=== PATIENT | female | born 1985 | race Two or more races ===

== ENCOUNTER → 2020-06-26 08:35 | Outpatient (CLI) | payer OTHER, SELFPAY ==
--- NOTE | ~2020-06-26 | CT_ITS ---
EXAMINATION: CT soft tissue neck w con DATE: 06/26/2020 08:54 INDICATION: Left submandibular swelling and pain. TECHNIQUE: Computed tomography (CT) of the neck was performed with 75 mL Omnipaque-350 intravenous co ntrast. Automated exposure control and iterative reconstruction technique were employed. The dose-tres gth product was 369.23 mGy-cm. COMPARISON: None FINDINGS: The orbits are normal. There are no pathologically enlarged lymph nodes. The parotid glands and submandibular glands are normal. The cervical carotid arteries and vertebral arteries are normal . There is dependent fluid in the maxillary sinuses. The spine is unremarkable. IMPRESSION: 1. No etiology for the patient's symptoms. Reviewed, dictated and finalized at location A.
== END ==
PROVIDERS: PCP Emergency Medicine; Visit Provider Emergency Medicine
DX: R22.1 Localized swelling, mass and lump, neck (principal)
CPT/HCPCS: 70491; Q9967

== ENCOUNTER → 2020-07-01 08:14 | Outpatient (CLI) | payer OTHER, SELFPAY ==
--- NOTE | ~2020-07-01 | US_ITS ---
EXAMINATION: US abdomen complete DATE: 07/01/2020 08:43 INDICATION: Liver disease elevated liver TECHNIQUE: Multiple grayscale and Doppler ultrasound images of the abdomen were obtained. COMPARISON: None available FINDINGS: The head and body of the pancreas are normal. The pancreatic tail is obscured by bowel gas. The liver is normal with normal echogenicity and echotexture. No surface nodularity. Normal hepatope maik flow in the main portal vein. The gallbladder is normal with no abnormal wall thickening, pericho lecystic fluid or stones. The normal common bile duct measures 6 mm. There was no sonographic Talavera sign. The visualized portions of the aorta and inferior vena cava are normal. The right kidney measures 12.3 x 4.3 x 4.9 cm. The left kidney measures 10.8 x 4.2 x 5.9 cm. The kidn eys demonstrate normal parenchymal echogenicity. There is no hydronephrosis. The spleen is normal in appearance and measures 11.0 cm. IMPRESSION: 1. No sonographic correlate for the patient's symptoms. Reviewed, dictated and finalized at location A.
== END ==
PROVIDERS: PCP Emergency Medicine; Visit Provider Emergency Medicine
DX: K76.9 Liver disease, unspecified (principal)
CPT/HCPCS: 76700

== ENCOUNTER → 2021-08-20 17:34 | Outpatient (CLI) | payer OTHER, SELFPAY ==
--- NOTE | ~2021-08-20 | XR_ITS ---
EXAMINATION: XR chest 2V DATE: 08/20/2021 17:50 INDICATION: Cough TECHNIQUE: PA and lateral views of the chest are obtained. COMPARISON: None available FINDINGS: The lungs are free of acute opacities. There is no pleural effusion or pneumothorax. The ca rdiomediastinal silhouette is normal. There is mild thoracic spondylosis. IMPRESSION: 1. No acute cardiopulmonary abnormality. Reviewed, dictated and finalized at location F.
== END ==
PROVIDERS: PCP Emergency Medicine; Visit Provider Emergency Medicine
DX: R05.9 Cough, unspecified (principal)
CPT/HCPCS: 71046

== ENCOUNTER 2024-10-02 00:50 | Day surgery (SDC) | payer OTHER, SELFPAY ==
[2024-09-28 13:47] VITALS: BMI 29.0
--- OUTSIDE RECORDS SUMMARY | 2024-10-02 00:53 | XMS_ITS | Encounter Summary ---
Author Organization [facility] Address [address] [place] [address] Care Team Providers Care Moss Gatherer Name Role Phone Gen Pinto MD Primary Care Provider [phone] Reason for Visit * Reason Onset Date Comments Surgical Followup 07/26/2018 Encounter Details Date Type Department Care Team (Late st Contact Info) Description 07/26/[address] [facility] [address] [place] [address] Saundra Yi APRN-CNM [address] [facility] [address] [place] [address] Surgical Followup Social History Tobacco Use Types Packs/Day Years Used Date Smoking Tobacco: Never Smokeless Tobacco: Never Alcohol Use Standard Drinks/Week Comments No 0 (1 standard drink = 0.6 oz pur e alcohol) Comments Yes Sex and Gender Information Value Date Recorded Sex Assigned at Not on file Legal Sex Female 1:23 PM CDT Gender Identity Not on file Sexual Orientation Not on file documented as of this encounter Miscellaneous Notes * Telephone Encounter - Saundra Yi APRN-CNM - 07/26/2018 4:29 PM CDT Called patient and her spouse. Former patient of mine who transferred care to practice in [place] for convenience. States delivered at [facility] on 07/19. First day home from hospital, had large blood clot hanging from vagina that she could not remove herself. Presented to ER at [place] and states had pelvic exam and they removed a piece of placenta about 10 cm. Told to f/u with Dr. Fisher and have US. States she did that a few days later and was told she had retained placenta and prescribed antibiotics and was scheduled for surgery 07/27 at 7 am. When she asked what surgery she was having she said that the office and hospital both refused to tell her what surgery she needed and that she just needed to show up to the hospital. Pt states that she has a language barrier and does not feel that she is being well-informed about her care. She is concerned because she is still bleeding, although bleeding has slowed down. Denies soaking 1 pad/hr. States is having increased cramping and is worried.She declines to go to closest ER ([facility] or [facility]) as she was told they do not have ultrasound capability and they are not keeping her informed. Advised to come to our ER at [facility] for evaluation. will drive her. Drs. Savage and Baldo Caballero notified. * Telephone Encounter - Lissette Sapp RN - 07/26/2018 4:14 PM CDT Saundra Yi returned call to pt & spouse. Due to symptoms, recommended ER @ [facility]. Possible retained placenta, may need D&C. Pt told Saundra she would go to ER. Saundra contacted attending r/t pt. * Telephone Encounter - Janet Day - 07/26/2018 3:49 PM CDT Spouse( Tania ) Called she delivered 07-19-18 at [facility] [phone]. The placenta was not fully removed. She is going to see a [phone] tomorrow AM address [address] [place] [address] [place]. She is not comfortable going there to have placenta removed. Needs DENISE call. documented in this encounter Plan of Treatment Not on file documented as of this encounter Visit Diagnoses Not on filedocumented in this encounter Care Teams Moss Gatherer Relationship Specialty Start Date End Date Gen Pinto MD PCP - General Family Medicine 07/26/18 documented as of this encounter
--- OUTSIDE RECORDS SUMMARY | 2024-10-02 00:53 | XMS_ITS | Continuity of Care Document ---
Author Organization [facility] Address [address] [place] [address] [place] [address] Phone Care Team Providers Care Picker Tender Name Role Phone Gen Pinto MD Unavailable Unavailable Allergies, Adverse Reactions, Alerts Substance Reaction Status Criticality No Known Allergies Active No Inform ation Medications Medication Instructions Dosage Effective Dates (start - stop) Status Comments Pepcid 40 mg tablet take 1 tablet by ora l route every day 40 MG - Active Problems Condition Type Effective Dates (start - stop) Clini ria Status Comments No Known Problems Procedures Procedure Date OFFICE/OUTPATIENT VISIT, EST OFFICE/OUTPATIENT VISIT, EST PREV VISIT, EST, AGE 18-39 OFFICE/OUTPATIENT VISIT, EST OFFICE/OUTPATIENT VISIT, EST PREV VISIT, EST, AGE 18-39 OFFICE/OUTPATIENT VISIT, EST OFFICE/OUTPATIENT VISIT, EST OFFICE/OUTPATIENT VISIT, EST OFFICE/OUTPATIENT VISIT, EST PREV VISIT, EST, AGE 18-39 OFFICE/OUTPATIENT VISIT, EST OFFICE/OUTPATIENT VISIT, EST OFFICE/OUTPATIENT VISIT, EST OFFICE/OUTPATIENT VISIT, EST PREV VISIT, EST, AGE 18-39 OFFICE/OUTPATIENT VISIT, EST OFFICE/OUTPATIENT VISIT, EST OFFICE/OUTPATIENT VISIT, EST OFFICE/OUTPATIENT VISIT, EST OFFICE/OUTPATIENT VISIT, EST OFFICE/OUTPATIENT VISIT, EST OFFICE/OUTPATIENT VISIT, EST PREV VISIT, NEW, AGE 18-39 OFFICE/OUTPATIENT VISIT, NEW Advance Directives Directive Yes / No Effective Date File Name No Information Encounters Encounter Description Practice Location Reason(s) For Visit Diagnoses Date Provider Providers Copied on Encounter OFFICE/OUTPA TIENT VISIT, [facility], [address] [place], [address], [place] tel:[phone] [facility] sleep apnea1 (chief complaint) abd pain1 (chief complaint) weight gain1 (chief complaint) Abnormal weight gainGERD w/o esophagitisObstruct flo Sleep Apnea Hypopnea 5 Blair Blevins. [address], [place], [place], [address] , [place]. [phone] OFFICE/OUTPA TIENT VISIT, [facility], [address] [place], [address], [place] tel:[phone] [facility] sleep1 (chief complaint) cough1 (chief complaint) back pain1 (chief complaint) Obstructive sleep apnea hypopneaChronic coughOther spondylosis, lumbar region 5 Blari Solis [address], [place], [place], [address] , [place]. tel:[phone] PREV VISIT, EST, AGE 18-39 [facility], [address] [place], [address], [place] [phone] [facility] physical (chief complaint) Encounter for general adult medical exam w abnormal findingsAllergic rhinitis due to pollenParesthesia of skinOther spondylosis, cervical regionUrinary frequencyGeneralize d Anxiety Disorder 4 Blair Blevins. [address], [address] , [place]. tel:[phone] OFFICE/OUTPA TIENT VISIT, [facility], [address] [place], [address], [place] tel:[phone] [facility] sore throat1 (chief complaint) rash1 (chief complaint) chest pain1 (chief complaint) Tinea corporisAnt chest-wall painHypertrophy of tonsilsLiver disease 3 Blair Solis [address], [place], [place], [address] , [place]. tel:[phone] PREV VISIT, EST, AGE 18-39 [facility], [address], [place], [place], [address], [place] tel:[phone] [facility] PHysical (chief complaint) Encounter for general adult medical exam w abnormal findingsChronic coughLiver diseaseFamily history of stroke 3 Blair Solis [address], [place], [place], [address] , [place]. [phone] OFFICE/OUTPA TIENT VISIT, [facility], [address], [place], [place], [address], [place] tel:[phone] [facility] cough1 (chief complaint) LFT (chief complaint) Chronic coughCOVID-19Liver disease 2 Blair Solis [address], [place], [place], [address] , [place]. tel:[phone] OFFICE/OUTPA TIENT VISIT, [facility], [address] [place], [address], [place] tel:[phone] [facility] cough1 (chief complaint) allergy1 (chief complaint) Viral infectionRashAllerg ic rhinitis Jul- 2 Blair Solis [address], [place], [place], [address] , [place]. tel:[phone] OFFICE/OUTPA TIENT VISIT, [facility], [address], [place], [place], [address], [place] tel:[phone] [facility] COVID (chief complaint) LFT (chief complaint) H pylori1 (chief complaint) weight gain1 (chief complaint) Abnormal weight gainFatty liverCOVID-19H. pylori as the cause of diseases classified elsewhere 2 Blair Blevins. [address], [place], [place], [address] , [place]. tel:[phone] PREV VISIT, EST, AGE 18-39 [facility], [address], [place], [place], [address], [place] tel:[phone] [facility] physical (chief complaint) Encounter for general adult medical exam w abnormal findingsLiver diseaseH. pylori as the cause of diseases classified elsewhere 2 Blair Blevins. [address], [place], [place], [address] , [place]. tel:[phone] OFFICE/OUTPA TIENT VISIT, [facility], [address], [place], [place], [address], [place] tel:[phone] [facility] fever1 (chief complaint) H pylori (chief complaint) yeast (chief complaint) H. pylori as the cause of diseases classified elsewhereHematuriaA bdominal painNauseaPruritus vulvae 1 Blair Blevins. [address], [place], [place], [address] , [place]. tel:[phone] OFFICE/OUTPA TIENT VISIT, EST [facility], [address], [place], [place], [address], [place] tel:[phone] [facility] H pylori1 (chief complaint) allergy1 (chief complaint) H. pylori as the cause of diseases classified elsewhereAllergic rhinitis 1 Blair Solis [address], [place], [place], [address] , [place]. tel:[phone] Referring Provider: Kathryn T[address], [place], [place], [address]. tel:[phone] OFFICE/OUTPA TIENT VISIT, EST [facility], [address], [place], [place], [address], [place] tel:[phone] [facility] Hpylori (chief complaint) allergy1 (chief complaint) H. pylori as the cause of diseases classified elsewhereAllergic rhinitis 1 Blair Solis [address], [place], [place], [address] , [place]. tel:[phone] Referring Provider: Kathryn Tatum [address], [place], [place], [address]. tel:[phone] PREV VISIT, EST, AGE 18-39 [facility], [address], [place], [place], [address], [place] tel:[phone] [facility] LFT (chief complaint) H pylori1 (chief complaint) allergy1 (chief complaint) HLP (chief complaint) jaw pain1 (chief complaint) H. pylori as the cause of diseases classified elsewhereLiver diseaseAtypical facial painAllergic rhinitisEncounter for general adult medical exam w abnormal findingsEncounter for general adult medical examination without abnormal findings 1 Blair Solis [address], [place], [place], [address] , [place]. tel:[phone] Referring Provider: Kathryn Tatum [address], [place], [place], [address]. tel:[phone] OFFICE/OUTPA TIENT VISIT, [facility], [address], [place], [place], [address], [place] tel:[phone] [facility] H pylori1 (chief complaint) HLP (chief complaint) weight loss1 (chief complaint) H. pylori as the cause of diseases classified elsewhereIron deficiencyHyperlipi demiaAbnormal weight loss 0 1 Blair Solis [address], [place], [place], [address] , [place]. tel:[phone] Referring Provider: Kathryn Tatum [address], [place], [place], [address]. tel:[phone] OFFICE/OUTPA TIENT VISIT, EST [facility], [address], [place], [place], [address], [place] tel:[phone] [facility] rash1 (chief complaint) allergy1 (chief complaint) hidradenit is1 (chief complaint) Hpylori1 (chief complaint) iron (chief complaint) RashHidradenitis suppurativaAllergic rhinitisH. pylori as the cause of diseases classified elsewhereIron deficiency 0 Blair Blevins. [address], [place], [place], [address] , [place]. tel:[phone] Referring Provider: Kathryn Tatum [address], [place], [place], [address]. tel:[phone] OFFICE/OUTPA TIENT VISIT, [facility], [address], [place], [place], [address], [place] tel:[phone] [facility] lymph1 (chief complaint) right axillary1 (chief complaint) muscle pain1 (chief complaint) Hpylori1 (chief complaint) LymphadenopathyHidr adenitis suppurativaOther muscle spasmH. pylori as the cause of diseases classified elsewhere 0 Blair Blevins. [address], [place], [place], [address] , [place]. tel:[phone] Referring Provider: Kathryn Tatum [address], [place], [place], [address]. tel:[phone] OFFICE/OUTPA TIENT VISIT, [facility], [address], [place], [place], [address], [place] tel:[phone] [facility] HLP (chief complaint) sty (chief complaint) knee (chief complaint) knee pain1 (chief complaint) Hpylori1 (chief complaint) anemia1 (chief complaint) H. pylori as the cause of diseases classified elsewhereHordeolum externum of right eyelidAnemiaPain in unspecified kneeHyperlipidemia 9 Blair Blevins. [address], [place], [place], [address] , [place]. tel:[phone] Referring Provider: Kathryn T[address], [place], [place], [address]. tel:[phone] OFFICE/OUTPA TIENT VISIT, [facility], [address], [place], [place], [address], [place] tel:[phone] [facility] HLP (chief complaint) anemia1 (chief complaint) hand pain1 (chief complaint) AnemiaHyperlipidemi aElevated ESRPain in unspecified joint 9 Blair Blevins. [address], [place], [place], [address] , [place]. tel:[phone] Referring Provider: Kathryn T[address], [place], [place], [address]. tel:[phone] OFFICE/OUTPA TIENT VISIT, [facility], [address], [place], [place], [address], [place] tel:[phone] [facility] joint pain1 (chief complaint) nausea1 (chief complaint) Pain in unspecified jointNauseaH. pylori as the cause of diseases classified elsewhereAnemia 9 Blair Blevins. [address], [place], [place], [address] , [place]. tel:[phone] Referring Provider: Kathryn Tatum, [place], [address]. tel:[phone] PREV VISIT, NEW, AGE 18-39 [facility], [address], [place], [place], [address], [place] tel:[phone] [facility] PHysical (chief complaint) Encounter for general adult medical exam w abnormal findingsAthlete's footHypotensionOthe r hypertrophic disorders of the skin 9 Blair Blveins. [address], [place], [place], [address] , [place]. tel:[phone] Referring Provider: Kathryn Tatum [address], [place], [place], [address]. tel:[phone] Family History Family Member Type Diagnosis Age At Onset Father Problem Alive and well Mother Problem (finding) Alive and well Father Problem Stroke Brother Problem (finding) Alive and well Payers Payer name Insurance type Covered republican ID Authoriza tion(s) [employer] [facility] CI [id number] Social History Type Description Quantity Date Captured Comments Alcohol Use Details No Caffeine Use Details Unknown Tobacco Use Status Current non-smoker Smoking Status Never smoker Sex Female Vital Signs Date / Time: Height Weight BMI Pulse Rate Blood Pressure Temperature Respiratory Rate Body Surface Area Head Circumference BMI percentile Pulse Ox Inhaled Ox 5:24 PM 66.00 in 187.60 lbs 30.2 8 kg/m eter (2) 82 /min 110/60 mm[Hg] 97.5 F 16 /min Chief Complaint And Reason For Visit From encounter dated '09/17/2024 17:17'. sleep apnea1 (chief complaint). Description: Pt has sleep apnea Pt is seeing ENT/sleep and she willstart APAP soon abd pain1 (chief complaint). Description: Pt c/o intermittent midepigastric abd pain, regardless food or empty stomach. Pt also has GERd symptoms Pt feels acid feeling in stomach area .Pt sometimes feels sore throat in the morning as well. Pt denies any nausea, vomiting. weight gain1 (chief complaint). Description: Pt has been gaining weight. Pt has not been physicallyactive . Plan Of Treatment Date Type Action Status Goal Special diet education compl eted Goal Special diet education compl eted Goal Special diet education compl eted Goal Special diet education compl eted Referral Ordered: ESOPHAGUS ENDOSCOPY ordered Referral Ordered: SLEEP STUDY, ATTENDED ordered Referral Ordered: MRI BRAIN W/O & W/DYE ordered Referral Ordered: US CAROTID ordered Referral Ordered: Pulmonology (related to Chronic cough) ordered Referral Ordered: Gastroenterology (related to Liver disease) ordered Referral Ordered: Referrals: Gastroenterology. Evaluate and treat ordered Referral Ordered: Referrals: Pulmonology. Evaluate and treat ordered Referral Ordered: CHEST X-RAY PA/LAT TWO-VIEWS ordered Referral Ordered: Physical Therapy (related to Abdominal pain) ordered Referral Referred To: Physical Therapy Ordered: Referrals: Physical Therapy. Evaluate and treat ordered Referral Ordered: Jeanmarie [facility] : Internal Medicine : Gastroenterology (related to H. pylori as the cause of diseases classified elsewhere) ordered Referral Referred To: Jeanmarie Jane [address], [place], [id number] Ordered: Referrals: [facility] : Internal Medicine : Gastroenterology. Jeanmarie Jane. Evaluate and treat ordered Referral Ordered: CT SOFT TISSUE NECK W/DYE ordered Referral Ordered: US EXAM, ABDOM, COMPLETE ordered Referral Ordered: US THYROID ordered History Of Present Illness Encounter Date Complaint History Of Prese nt Illness abd pain1 Pt c/o intermitt ent midepigastric abd pain, regardless food or empty stomach. Pt also has GERd symptoms Pt feels acid feeling in stomach area .Pt sometimes feels sore throat in the morning as well. Pt denies any nausea, vomiting. 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 Pt has not been physically active . back pain1 Pt has intermitt ent low back pain Pt is seeing orthospine and she had MRi done which showed DDD Pt denies any sciatica or any loss of bowel or bladder control or saddle area paresthesia cough1 Pt has been havi ng dry cough for two months Pt denies any sob .Pt denies any sob Pt denies any hemoptysis Pt denies any night sweat Pt went to [place] recently and she had negative chest x ray and PFTs. Pt was told that she has hyperactive airway. Pt denies any sinus symptoms or sore throat sleep1 Pt c/o snoring a nd daytime fatigue Pt wakes up feeling tired. Pt is interested in sleep study physical Pt needs annual physical. She has family history of CVA Her father had stroke in his 50s with left side paralysis. Pt states that she notices left arm and leg numbness and tingling and some pain and some swelling for the past several months. Pt does have neck and low back pain Pt is seeing ortho who did C and L spine x ray which was benign and she was referred to physical therapy. pt denies any weakness. Pt is concerned about frequent left whole arm and left whole leg paresthesia. Pt does have some left radiculopathy and left sciatica symptoms. Pt denies any dillon weakness. Pt also notices subjective swelling left arm as well Pt denies any axillary nodule. Pt denies any headache or vision change. Pt has chronic environmental allergy and she is getting allergy shot. Pt also has a lot of stress at work. Pt feels anxious .Pt denies any depression Pt denies any suicidal or homicidal thought. Pt denies any crying spells. Pt also c/o urinary frequency recently without urgency or dysuria. Pt denies any flank pain or abd pain Pt denies any polydipsia. sore throat1 Pt c/o mild left side tonsil pain for two months pt denies any dysphagia pt denies any drooling. Pt notices mild pain sometime. Pt denies any headache, stiff neck Pt notices occasional tonsil stone on left side chest pain1 Pt c/o left side chest wall pain when she lies down at night on her left side. Pt denies any sob, or cough or night sweat. Pt states that chest pain relieved by lying down right side and also when she lying down face down. rash1 Pt c/o some mild itching rash around posterior neck and also left side arm area for several months, which are worse during the sun Pt denies any sick contact PHysical Pt needs annual physical Pt states that her cough resolved. Pt did see pulmonary and was cleared. Pt also has mildly elevated LFT. Pt denies any abd pain or jaundice. Pt did see liver specialist and was cleared of any liver disease. Pt denies any abd pain or jaundice pt rarely drinks alcohol. Pt also states that her uncle had stroke recently and she is concerned about her risk factor for stroke and she wants to know if she needs statins Pt denies any other complaints LFT Pt has history o f mild high LFT .Pt denies any abdominal pain or jaundice .Pt does not drink alcohol. Pt had normal liver ultrasound and negative hepatitis. Pt works with some toxic material at work for her liver. Pt wants to see liver specialist cough1 Pt contacted COV ID on 08/05/21. Pt has been having persistent dry and productive cough since then. Pt does have sinus allergy and she is on allergy shot and anti histamines. Pt denies any hemoptysis. Pt denies any fever .Pt denies any sob. pt states she has cough throughout the day but worse at night. Pt states that she feels that her throat feels sensitive due to cough. pt denies any dysphagia. Pt states that she has some intermittent sharp left side chest pain with persistent cough. Pt denies any calf pain or recent travel or bedrest. Pt had normal chest x ray recently. Pt denies any fever or chill or hemoptysis allergy1 Pt has chronic s easonal allergy and she gets regular allergy shot and she takes OTC anti histamine daily. pt does not think she has allergy symptoms cough1 Pt c/o sore thro at, running nose with green and white drainage, mild dry cough for one week. Pt has persistent bouts of dry cough since 3 weeks ago after infecting with COVID. Pt denies any fever, sob. Pt denies any dysphagia. Pt had normal chest x ray last week. Pt also notices small scattered red bumpy rash on stomach area for 3 days. Pt notices mild pain around the rash but no itching. Pt denies any sick contact. LFT Pt has mildly hi gh LFT recurrently. Pt denies any abd pain or jaundice Pt does not drink alcohol. Pt has negative hepatitis. Pt had normal liver ultrasound. H pylori1 Pt has history o f H pylori, which was successfully treated after 3 rounds of triple abx. Pt denies any abd pain or GERD COVID Pt tested positi ve for COVID on 08/05 and she had fever, cough without sob, headache and most of her symptoms resolved after 4-5 days but she started to have dry cough and sore throat since last week. Pt denies any sob or chest pain or fever. She denies any dysphagia. she went to urgent care last Tuesday and she was given Z quinton and felt slightly better initially but her cough is still persistent. Pt states that she woke up last night from coughing. Pt has been taking OTC meds. Pt denies any fever. Pt is taking OTC coug meds. weight gain1 Pt states that s he has had time losing weight. Pt has been diet and exercising without any weight loss. physical Pt needs annual physical. Pt has history of H pylori s/p treatment and she had negative urea breath test recently p yumi any GI issue. Pt denies any GERD, nausea, vomiting Pt recently had blood drawn by nurse and she states that the nurse did horrible job and the needle is not cleaned as well as the cotton swab Pt is very concerned about HIV and hepatitis etc. Pt denies any accidental stuck by contaminated needle. H pylori Pt has H pylori. Pt is taking levaquin, amoxil and prevacid currently and she is waiting for patricia with GI. Pt failed multiple rounds of abx treatment for h pylori. Pt denies any GERD or abd pain yeast Pt states that s he has recurrent vaginal itching for a while .Pt denies any pelvic pain or discharge fever1 Pt developed acu te onset of blood urine, dysuria, urinary frequency and urgency on 12/08/20. Pt went to ER on 12/08/20 and she had UA test and blood test and she was told that she had UTI and blood in urine. Pt had abdominal and pelvis CT in ER which was also normal. I reviewed her lab and no hematuria and urine cx was normal. Pt started to take amoxil and levofloxacin on 12/08/20 and she felt better and she started to have low grade fever around 100.4 and some chills. Pt feel nauseated as well. Pt c/o left side flank pain as well as well Pt states that she has been having left flank pain on and off for one month but has been worse since last week Pt returned to ER last night and had lab done which was normal again and UA did show some hematuria .Pt has not had any fever since last night. Pt feels mild nausea and mild left side flank pain. Pt still feels urinary urgency and mild dysuria still. Pt states that her left side back pain has been going on for a while with occasional left sciatica to left hip Pt denies any saddle area paresthesia or any leg neuropathy symptoms H pylori1 Pt has persisten t H pylori infection .Pt tried two rounds of treatment without success. Pt denies any abdominal pain or GERD. Pt denies any early satiety, weight loss, nausea, vomiting, appetite loss. Pt was treated with omeprazole, clarithromycin, amoxicillin and metronidazole x 3 rounds in the past several years without success . allergy1 Pt has chronic s inus allergy symptoms Pt is seeing zinc plate grainer at [facility] now and she is getting allergy shot. Pt is going ok currently allergy Pt has allergic rhinitis with conjunctivitis. Pt has teary and itchy eyes. Pt takes OTC anti-histamine and doing ok and she also uses cromolyn eye drops with good success. Pt wants eye drop refilled. Hpylori Pt has H pylori infection. Pt was treated with omeprazole, amoxicillin and also clarithromycin without success. She denies any GERD. Her just had EGD and tested negative for H pylori. Pt denies any abd pain, nausea, vomiting, weight loss ,appetite loss, blood in stool, etc LFT Pt has mld high LFT Pt denies any abd pain or jaundice Pt rarely drinks alcohol H pylori1 Pt has H pylori positive Pt denies any GERD or abd pain. Pt denies any nausea allergy1 Pt has seasonal allergy with itchy eyes, sneezing, sinus congestion with postnasal drainage Pt denies any vision change. Pt has frequent tearing Pt tried OTC anti histamine but not helping Pt denies any asthma or wheezing or sob HLP Pt has been diet and exercising and her lipid profile is ok now jaw pain1 Pt c/o persisten t left side posterior jaw pain for several years. Pt does grind her teeth at night pt notices mild swelling left side of neck just posterior to left jaw line .Pt denies any ear pain Pt feels dull ache all the time. Pt denies any toothache Apr-07-2021 weight loss1 Pt has been diet and exercising and intentionally losing weight Pt denies any appetite loss, nausea, vomiting, early satiety, blood in stool, change of bowel, abd pain, etc HLP Pt has mildly hi gh TG and low iron in the past Pt denies any fatigue sob H pylori1 Pt has history o f H pylori infection Pt was treated but she never did the follow up testing. Pt denies any GERD or abd pain hidradenitis1 Pt has hidradeni tises both axillary area for several years .Pt did see dermatology and was given doxycycline but she could not tolerate it with GI symptoms with nausea, vomiting. Pt states that currently she is doing ok with hidradenitis. rash1 Pt c/o recurrent and intermittent itchy rash around neck area for several months. Pt denies any insect bite. Pt denies any spreading of the rash .pt notices mild itching and pain around the rash. Pt notices small skin bumps around neck area and appears red sometimes .Pt denies any warmth. Pt denies any drainage .Pt denies any acute drainage or active symptoms now. Pt also notices some swelling around the rash area intermittently iron Pt has history o f low iron .Pt is 17 months . Pt denies any heavy bleeding Hpylori1 Pt denies any GE RD or abd pain Pt wants to hold off H pylori testing Pt was treated for triple therapy allergy1 Pt has recurrent sinus and itchy eyes .Pt seen eye doctor and she was told that she has allergic conjunctivitis and was prescribed allergy eye drop. Pt doing better .Pt denies any vision change. muscle pain1 Pt notices mild muscle pain left upper chest area near the left shoulder for several weeks. Pt has to carry her all the time Pt is . Pt denies any exertional chest pain or sob. Pt denies any injury. Pt denies any neck pain .Pt notices mild left upper arm tingling sometimes along with pain. Pt denies any left upper extremity weakness. Hpylori1 Pt denies any ab d pain or GERD ,Pt was treated for H pylori and she has not done urea breath test yet for follow up lymph1 Pt c/o chronic a nd intermittent left inferior auricular swelling for many years. Pt denies any sore throat, or any oral mucosa issue. pt notices active swelling for 3 weeks now. Pt denies any pain or redness or warmth. right axillary1 Pt c/o right axi llary swelling and pain with intermittent pus drainage for 3 weeks. Pt denies fever. Pt denies any left axillary symptoms. Pt also noticed some right inguinal area lymph node last week which resolved now. HLP Pt has mild high tG. Rest of lipid profile is ok Hpylori1 Pt denies any GE Rd or abd pain Pt has positive ure breath test. Her was recently tested positive for above and was successfully treated anemia1 Pt no longer ane nghia Pt has borderline low iron sat but improving ,Pt denies any bleeding sty Pt c/o mild pain and irritation and swelling right upper eyelid for several days. Pt denies any drainage or any eye issue knee knee pain1 Pt c/o bilateral medical knee and low back pain for several weeks. Pt denies any swelling Pt denies any injury, Pt denies any redness or warmth, Pt denies any sciatica or any loss of bladder control. Pt carries her frequently hand pain1 Pt has vague gasca d pain and borderline high ESR Pt denies any other joint pain Her rheumatological work up is negative. anemia1 Pt has mild iron deficiency anemia. Pt did have retained placenta s/p surgery with blood loss and she is . Pt denies any vaginal bleeding or any Gi blood loss Pt denies any GI blood loss HLP Pt has mild HLP Pt is two weeks . nausea1 Pt feels slightl y nauseated for 1-2 weeks. Pt denies any abdominal pain. Pt zora any vomiting or abdominal pain. Pt did have retained placenta post delivery and she had to have 2nd surgery done at [facility]. pt did lose some blood. Pt denies any dizziness or chest pain Pt had 2nd surgery last week. Pt notices mild spotting but getting better., Pt denies any GERD or abd pain just got treated for H pylori joint pain1 Pt c/o bilateral hand stiffness and PIP and wrist and MP joint pain both hand for one week. Pt is 3 weeks . Pt started to have hand pain two week . pt has been holding her baby more and is trying to manually squeeze her breast during breast feeding but she stopped doing above about one week ago but her hand stiff and pain persisted. Pt states that her hand stiffness and pain is worse in the morning and seems getting better towards later of the day but still feels stiffness with mild pain pt denies any swelling, warmth or redness Pt denies waking up at night with symptoms Pt has equal symptoms both hand Pt denies any other joint pain. Pt denies any rash PHysical Pt needs annual physical. Pt is 37 week and due date is in 2-3 weeks. Pt notices that her BP is running low and she feels some mild dizziness sometimes Pt denies any orthostasis. Pt states that her bp is around 100/60 at home. Pt denies any chest pain Pt also notices skin peeling left big toe without any itching for several weeks. Pt notices some brittle left big toenail with line. Pt also notices some vague rash on neck area. Pt denies any other complaints Instructions Date Instruction Additional Infor mation Special diet education Related t o Body mass index (BMI) 29.0-29.9, adult Weight management Related to Hor deolum externum of right eyelid Increase physical activity Relat ed to Hordeolum externum of right eyelid Special diet education Related t o Body mass index (BMI) 29.0-29.9, adult Increase physical activity Relat ed to Anemia Special diet education Related t o Body mass index (BMI) 29.0-29.9, adult Increase physical activity Relat ed to Pain in unspecified joint Diet and exercise Related to Enc ounter for general adult medical exam w abnormal findings Special diet education Related t o Body mass index (BMI) 31.0-31.9, adult Assessments Type Assessment Date assessment Abnormal weight gain assessment GERD w/o esophagitis assessment Obstructive Sleep Apnea Hypopnea Mental Status Date Cognitive Assessment Orientation - [place] ed to time, place, person, situation.
--- OUTSIDE RECORDS SUMMARY | 2024-10-02 00:53 | XMS_ITS | Clinical Summary ---
Author Organization [facility] Address [address] [place] [phone] Phone Care Team Providers Care Police Crime Scene Technician Name Role Phone Gen Pinto MD Primary Care Provider [phone] Allergies Active Allergy Reactions Criticality Noted Date Comments Cat Dander Unknown 04/21/2020 [place] Cough,Itching Low 10/17/2019 Tree Pollen-[place]ian [place] Unknown 04/21/2020 Tree Pollen-[place] Other (See Comments) Low 06/29 [place] Pollen [place] Pollen Rhinitis Medications cetirizine (ZyrTEC) 10 mg tablet Take 10 mg by mouth daily. 08/12/2020 Active L.acid,meek,rham /B.bifid,long (PROBIOTIC DIGEST,LACTO,BIF JADIEL, ORAL) Take by mouth daily. Active cranberry-vitami n C-mannose 250-30-50 mg Tablet, Chewable Take by mouth. Active Active Problems No known active problems Encounters Date Type Department Care Team Description 09/12/2024 External Device Data [facility] ABSTRACTION Provider, Abstract 09/12/2024 External Device Data [facility] ABSTRACTION Provider, Abstract 08/15/2024 External Device Data [facility] ABSTRACTION Provider, Abstract 07/31/2024 External Device Data [facility] ABSTRACTION Provider, Abstract 07/31/2024 External Device Data [facility] ABSTRACTION Provider, Abstract 07/19/2024 External Device Data ST[facility] ABSTRACTION Provider, Abstract from Last 3 Months Family History Medical History Relation Name Comments Hypertension Mother Diabetes Paternal Uncle Relation Name Status Comments Mother Paternal Uncle Social History Tobacco Use Types Packs/Day Years Used Date Smoking Tobacco: Never Smokeless Tobacco: Never Tobacco Cessation:Counseling Given: Yes Alcohol Use Standard Drinks/Week Comments Not Currently 0 (1 standard drink = 0.6 oz pur e alcohol) Comments No Sex and Gender Information Value Date Recorded Sex Assigned at Not on file Legal Sex Female 10:15 AM CDT Gender Identity Not on file Sexual Orientation Not on file Last Filed Vital Signs Vital Sign Reading Time Taken Comments Blood Pressure 118/78 10/24/2023 4:38 PM CDT Pulse 79 12/17/2020 3:59 AM CDT Temperature 36.7 C (98 F) 12/22/2020 10:43 AM CDT Respiratory Rate 17 01/09/2021 10:04 AM STUDENT OUTREACH COORDINATOR Oxygen Saturation 97% 12/17/2020 3:59 AM CDT Inhaled Oxygen Concentration - - Weight 81.2 kg (179 lb) 10/24/2023 4:38 PM CDT Height 167.6 cm (5' 6) 10/24/2023 4:38 PM CDT Body Mass Index 28.89 10/24/2023 4:38 PM CDT Plan of Treatment Upcoming Encounters Date Type Department Care Team (Late st Contact Info) Description 10/23/2024 3:30 PM CDT Office Visit [facility] STAVE [facility]INTER - [facility] [address] [address] [address] Johnny Llanos MD [address] [facility] [place][Note 2] [address] [place] [address] Health Maintenance Due Date Last Done Comments Pre-Diabetes and Diabetes Screening 1985 HEPATITIS B VACCINES (1 of 3 - 19+ 3-dose series) 2004 HPV VACCINES (2 - 3-dose series) 03/28/2011 02/28/19 12 INFLUENZA VACCINE (#1) 2024 , 10/22/2019, 12/01/2018, Additional history exists PAP SMEAR 10/23/2026 10/24/2023, 09/29, 10/07/2021, Additional history exists DTAP/TDAP/TD VACCINES (2 - T d or Tdap) 04/26/2028 04/26/2018 CERVICAL CANCER SCREENING 10/23/2028 HPV/Cotest (21-29) 10/23/2028 10/24/2023, 0 10/19/2022, 10/07/2021, Additional history exists HPV/Cotest (30-65) 10/23/2028 10/24/2023, 0 10/19/2022, 10/07/2021, Additional history exists Procedures Procedure Name Priority Date/Time Associated Diagnosis Comments CERV/VAG CYTO SCREEN PAP RLFX HPV Routine 10/24/2023 5:07 PM CDT Screening for cervical cancer from Last 3 Months or Most Recently Relevant to Health Maintenance Results * CERV/VAG CYTO SCREEN PAP RLFX HPV (10/24/2023 5:07 PM CDT) CLINICAL INFORMATION Yogi Shen Comment:None given LAST MENSTRUAL PERIOD Yogi Shen Comment:[id number] PREV PAP: Yogi Shen Comment:NONE GIVEN PREV BX: Yogi Shen Comment:NONE GIVEN SOURCE Yogi Shen Comment:Endocervix ADEQUACY: Yogi Shen Comment: Satisfactory for evaluation. Endocervical/transformation zone component present. PAP INTERP Yogi Shen Comment: Cytology Results: Negative for intraepithelial lesion or malignancy. COMMENT (PAP TEST) Q yesenia Shen Comment: This Pap test has been evaluated with computer assisted technology. OPTOMETRIST/PRACTICE OWNER: Amber Shen Comment: ABC, CT(ASCP) CT screening location: [place] [address] [address] Olga Shen Comment: EXPLANATORY NOTE: The Pap is a screening test for cervical cancer. It is not a diagnostic test and is subject to false negative and false positive results. It is most reliable when a satisfactory sample, regularly obtained, is submitted with relevant clinical findings and history, and when the Pap result is evaluated along with historic and current clinical information. Test Performed at: [facility] [place] [address] [address] [phone] Maribell Thi Vo Genital SWAB OF ENDOCERVIX / Unknown 10/24/2023 5:07 PM CDT 10/25/2023 6:12 AM CDT Johnny Llanos MD PATHOLOGY/CYTOLOGY ORD FREDRICK Final Result [facility] [phone] [facility] [address] [place] [address] from Last 3 Months or Most Recently Relevant to Health Maintenance Insurance RX [facility] [employer] [facility] [employer] Care Teams Police Crime Scene Technician Relationship Specialty Start Date End Date Gen Pinto MD [address] [employer] JUL[place]ET Agrawal [phone] PCP - General Family Practice 12/08/20
--- OUTSIDE RECORDS SUMMARY | 2024-10-02 00:53 | XMS_ITS | Referral Summary ---
Author Organization [facility] Address [address] [place] [address] Care Team Providers Care Oil Bay Technician Name Role Phone Gen Pinto MD Primary Care Provider Encounters Date Type Department Care Team Description 09/28/2024 3:30 PM CDT Clinical Support [facility] All[facility] Immunology [address] [place] [address] Medical Office Building [address] [place] [address] Seasonal allergic rhinitis due to pollen; Non-seasonal allergic rhinitis due to pollen 09/13/2024 2:00 PM CDT Clinical Support [facility] Immunology [address] [place] [address] Medical Office Building [address] [place] [address] Seasonal allergic rhinitis due to pollen; Non-seasonal allergic rhinitis due to pollen 09/07/2024 3:40 PM CDT Clinical Support [facility] Immunology [address] [place] [address] Medical Office Building [address] [place] [address] Seasonal allergic rhinitis due to pollen; Non-seasonal allergic rhinitis due to pollen 08/10/2024 3:40 PM CDT Clinical Support [facility] Immunology [address] [place] [address] Office Building [address] [place] [address] Seasonal allergic rhinitis due to pollen; Non-seasonal allergic rhinitis due to pollen 07/27/2024 Telephone [facility] Surgery [address] [facility] Medical Office Building [address] [place] [address] Swiney, Genesis, RMA orthotic coverage 07/27/2024 Results Follow-Up [facility] Surgery [address] [facility] Medical Office Building [address] [place] [address] Genesis Bronson RMA XR Foot Left 3 or More Views 07/26/2024 2:00 PM CDT - 07/26/2024 11:59 PM CDT Hospital Encounter [facility] - [address] [facility] [address] [place] [address] Left foot pain; Chronic pain of left ankle Discharge Disposition: Discharge to home or self care 07/26/2024 1:00 PM CDT Office Visit [facility] Surgery [address] [facility] Medical Office Building [address] [place] [id number] Mike Gan DPM Leg length discrepancy (Primary Dx); Left foot pain; Chronic pain of left ankle 07/13/2024 3:10 PM CDT Clinical Support [facility] All[facility] Immunology [address] [facility] Medical Office Building [address] [place] [address] Seasonal allergic rhinitis due to pollen; Non-seasonal allergic rhinitis due to pollen 07/02/2024 9:33 AM CDT - 07/02/2024 11:59 PM CDT Hospital Encounter [facility] Radiology at [facility] [address] [place] [address] Right elbow pain Discharge Disposition: Discharge to home or self care 07/02/2024 9:45 AM CDT Office Visit [facility] Orthopaedic Surgery [address] [facility] 1st Floor [address] [place] [address] Go Richards MD Right elbow pain (Primary Dx); Right wrist pain from Last 3 Months Allergies Active Allergy Reactions Criticality Noted Date Comments Cat Dander Unknown 04/21/2020 Riggins Cough,Eye irritation,Itching Low 10/17/2019 Tree Pollen-Barbadian [place] Unknown 04/21/2020 Tree Pollen-Delphos Other (See comments),Rhinitis Low 07/26/2018 Riggins Pollen Medications cranberry 400 mg capsule Take by mouth daily Active Lactobac no.41/Bifidobact no.7 (PROBIOTIC-10 ORAL) Take by mouth daily Active fluticasone propionate (FLONASE) 50 mcg/actuation nasal spray Administer 1 spray into each nostril daily Active clobetasoL (TEMOVATE) 0.05 % ointment Apply to perianal area twice daily x3 days then discontinue. 15 g 3 Active erythromycin (ILOTYCIN) ophthalmic ointment Apply a thin film to the outer corner of eyelids twice daily for two weeks. 3.5 g 1 4 Active olopatadine (PATADAY) 0.2 % ophthalmic solutionIndication s:Allergic Conjunctivitis Administer 1 drop into both eyes as needed for allergies Active Hospital, Clinic, or Other Facility Administered Medication Ordered Dose Route Frequency Start Date End Date Status cetirizine (ZyrTEC) tablet 10 mgIndications:Seasonal allergic rhinitis due to pollen 10 mg oral Once 09/28/2024 09/28/2024 Ended Active Problems Problem Noted Date Diagnosed Date Angular blepharitis of both eyes 03/07/2023 Assessment & Plan (07/20/2023 4:09 PM CDT): Resolved with e-mycin prn. 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 Elevated liver enzymes 11/09/2021 Assessment & Plan (11/12/2022 7:08 AM CDT): Patient with history of slightly elevated ALT of 37, rest of her labs have been normal. Her most recent labs from 11/09/21 showed normal liver chemistries. Serology workup and FibroScan were unremarkable. 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 I will obtain updated HFP today. If liver tests are normal then no further follow-up is needed. I recommended she use protective gear including mask and gloves. Patient can follow-up on PRN basis. Assessment & Plan (11/09/2021 9:55 AM CDT): Patient with a very slightly elevated ALT of 37. All other labs and liver tests are normal. Liver US 07/01/[address] a/p 12/08/20 were unremarkable. I will obtain updated labs today and evaluate for hepatitis, autoimmune, and other liver diseases. Will also obtain FibroScan to evaluate if she has any hepatic steatosis or fibrosis. If all are negative, will continue to monitor liver tests every 6 months. Given how low her ALT is, I do not predict any significant findings but will await test results. She will return to clinic in 1 year. Allergic conjunctivitis of both eyes 10/17/2019 Assessment & Plan (07/20/2023 4:09 PM CDT): Using pazeo daily. Breakthrough symptoms during peak pollen season, but this has passed. Advised pt to call if she has breakthrough symptoms and we can prescribe a short course of topical steroid. CPM with pazeo qd for now. Assessment & Plan (08/09/2022 3:29 PM CDT): Educated pt on signs/symptoms of allergic conjunctivitis. Currently seeing analytical research program manager and undergoing injections. Symptoms worsened during spring. Pt also with MGD and likely worsened dry eye secondary to systemic allergy tx. Recommended pataday for itching during allergy season, otherwise recommended hot compresses and ATs Refresh or Systane BID-QID OU. Pt to return to clinic if symptoms worsen. Assessment & Plan (05/22/2021 12:01 PM CDT): Educated pt on signs/symptoms of allergic conjunctivitis. Recommended pataday qam OU for allergy symptoms. Now seeing analytical research program manager and undergoing injections. Pt also with MGD and likely worsened dry eye secondary to systemic allergy tx, recommended hot compresses and ATs Refresh or Systane BID-QID OU. RTC if symptoms worsen. Assessment & Plan (12/09/2020 4:07 PM CDT): Can be getting some dryness with medications po and pataday. Will recommend hot compresses, flax/fish oil, more PFAFTs at bedtime (QHs). Use lotemax very sparingly. Assessment & Plan (10/17/2019 8:41 AM CDT): Lotemax QID both eyes (OU) for 1 week, then BID Ou for 1 week zaditor detention Conjunctival melanosis of both eyes 10/17/2019 Assessment & Plan (05/22/2021 11:59 AM CDT): Stable, observe. Assessment & Plan (12/09/2020 4:07 PM CDT): Noted previously Assessment & Plan (10/17/2019 8:41 AM CDT): No elevation or vascularization, observe Meibomian gland dysfunction (MGD) of both eyes 0 10/17/2019 Assessment & Plan (08/09/2022 3:30 PM CDT): Recommended refresh or systane BID-QID and hot compresses OU. Assessment & Plan (10/17/2019 8:42 AM CDT): Digital massage to lids daily Vaginal bleeding 02/01/2018 Supervision of normal first 12/07/2017 Overview (11/09/2019): PNL collection date and results: labs: B+/I/-/-; HIV neg Urine culture: neg PAP: normal w neg HPV GC/CT:-/- Dating US: 7wk5d Anomaly scan: plan at 20 wks Genetics: Sequential screen part one completed. Plan part 2 at 20 wks. GCT: 24-28 weeks Tdap: offer at 28 wks HIV: neg GBS: 35 wga H/Plt: 12.4.=/193 UCx: neg Breast/Formula: Breast Family Planning: Flu: given Supervision of normal first 12/07/2017 Overview (08/15/2021): PNL collection date and results: labs: B+/I/-/-; HIV neg Urine culture: neg PAP: normal w neg HPV GC/CT:-/- Dating US: 7wk5d Anomaly scan: plan at 20 wks Genetics: Sequential screen part one completed. Plan part 2 at 20 wks. GCT: 24-28 weeks Tdap: offer at 28 wks HIV: neg GBS: 35 wga H/Plt: 12.4.=/193 UCx: neg Breast/Formula: Breast Family Planning: Flu: given Seasonal allergic rhinitis due to pollen Overview (06/15/2024): SCIT reformulated 07/21 and contains T/DM/C/D/M. Chronic cough Immunizations Immunization Administration Dates Next Due HPV, Unspecified 02/28/2011 Influenza, Quadrivalent, Leydi l Culture-based MDCK, Preservative Free, Antibiotic Free, Intramuscular 10/22/2019,12/01/2018 Influenza, Quadrivalent, Spl it, Preservative Free, Intramuscular 01/06/2018 Tdap 04/26/2018 Social History Tobacco Use Types Packs/Day Years Used Date Smoking Tobacco: Never Smokeless Tobacco: Never Tobacco Cessation:Counseling Given: Not Answered Alcohol Use Standard Drinks/Week Comments Never 0 (1 standard drink = 0.6 oz pur e alcohol) AUDIT-C Answer Date Recorded Frequency of Alcohol Consumption Not on file 07/26/2024 Q2: How many drinks containi ng alcohol do you have on a typical day when you are drinking? 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82 06/04/2024 10:55 AM CDT Plan of Treatment Not on file Procedures Procedure Name Priority Date/Time Associated Diagnosis Comments XR ANKLE LEFT 3 OR MORE VIEWS Schedule Routine, Read Routine (OP Routine) 07/26/2024 2:17 PM CDT Left foot pain Chronic pain of left ankle XR FOOT LEFT 3 OR MORE VIEWS Routine 07/26/2024 2:17 PM CDT Left foot pain XR ELBOW RIGHT 3 OR MORE VIEWS Schedule Routine, Read Routine (OP Routine) 07/02/2024 9:36 AM CDT Right elbow pain HEPATITIS C ANTIBODY Routine 11/09/2021 9:57 AM CDT Elevated liver enzymes from Last 3 Months or Most Recently Relevant to Health Maintenance Results * XR Foot Left 3 or More Views (07/26/2024 2:17 PM CDT) Anatomical Region Laterality Modality Lower Extremities, Foot Left Computed Radiography 07/26/2024 2:33 PM CDT Impressions 07/26/2024 2:33 PM CDT No acute radiographic abnormality of the left foot or ankle. Electronically signed by: Mike Quiñonez D.O. Narrative 07/26/2024 2:33 PM CDT EXAMINATION: XR FOOT LEFT 3 OR MORE VIEWS, XR ANKLE LEFT 3 OR MORE VIEWS HISTORY: Left sinus tarsitis and left ankle pain COMPARISON: None FINDINGS: Intact talar dome. Symmetric ankle mortise noting nonweightbearing status. No acute fracture or dislocation. 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 No significant degenerative changes throughout the remainder of the foot. Procedure Note Mike Quiñonez, - 07/26/2024 EXAMINATION: XR FOOT LEFT 3 OR MORE VIEWS, XR ANKLE LEFT 3 OR MORE VIEWS HISTORY: Left sinus tarsitis and left ankle pain COMPARISON: None FINDINGS: Intact talar dome. Symmetric ankle mortise noting nonweightbearing status. No acute fracture or dislocation. 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 No significant degenerative changes throughout the remainder of the foot. IMPRESSION: No acute radiographic abnormality of the left foot or ankle. Electronically signed by: Mike Quiñonez D.O. Mike Gan DPM IM XR PROCEDURES Final Res ult * X-ray ankle left 3+ views (07/26/2024 2:17 PM CDT) Anatomical Region Laterality Modality Lower Extremities, Ankle Left Compute d Radiography 07/26/2024 2:33 PM CDT Impressions 07/26/2024 2:33 PM CDT No acute radiographic abnormality of the left foot or ankle. Electronically signed by: Mike Quiñonez D.O. Narrative 07/26/2024 2:33 PM CDT EXAMINATION: XR FOOT LEFT 3 OR MORE VIEWS, XR ANKLE LEFT 3 OR MORE VIEWS HISTORY: Left sinus tarsitis and left ankle pain COMPARISON: None FINDINGS: Intact talar dome. Symmetric ankle mortise noting nonweightbearing status. No acute fracture or dislocation. 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 No significant degenerative changes throughout the remainder of the foot. Procedure Note Mike Quiñonez, - 07/26/2024 EXAMINATION: XR FOOT LEFT 3 OR MORE VIEWS, XR ANKLE LEFT 3 OR MORE VIEWS HISTORY: Left sinus tarsitis and left ankle pain COMPARISON: None FINDINGS: Intact talar dome. Symmetric ankle mortise noting nonweightbearing status. No acute fracture or dislocation. 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 No significant degenerative changes throughout the remainder of the foot. IMPRESSION: No acute radiographic abnormality of the left foot or ankle. Electronically signed by: Mike Quiñonez D.O. Mike Gan DPM [facility] XR PROCEDURES Final Res ult * XR Elbow Right 3 or More Views (07/02/2024 9:36 AM CDT) Anatomical Region Laterality Modality Upper Extremities, Elbow Right Compute d Radiography 07/02/2024 10:4 9 AM CDT Impressions 07/02/2024 5:15 PM CDT Healing nondisplaced right radial neck fracture. Dictated by: Dawood Alejandro MD The radiology attending physician has personally reviewed this study, and had reviewed and/or edited this written report and agrees with it. Electronically signed by: Eugenia Renee MD Narrative 07/02/2024 5:15 PM CDT EXAMINATION: XR ELBOW RIGHT 3 OR MORE VIEWS HISTORY: Pain in the elbow FINDINGS: Comparison 05/14/2024. Alignment is normal. Joint spaces are maintained. There is a healing nondisplaced fracture of the radial neck. Procedure Note Natalie Renee MD - 07/02/2024 EXAMINATION: XR ELBOW RIGHT 3 OR MORE VIEWS HISTORY: Pain in the elbow FINDINGS: Comparison 05/14/2024. Alignment is normal. Joint spaces are maintained. There is a healing nondisplaced fracture of the radial neck. IMPRESSION: Healing nondisplaced right radial neck fracture. Dictated by: Dawood Alejandro MD The radiology attending physician has personally reviewed this study, and had reviewed and/or edited this written report and agrees with it. Electronically signed by: Eugenia Renee MD Go Richards MD IMG XR PROCEDURES Final Res ult * Hepatitis C antibody (11/09/2021 9:57 AM CDT) Hep C Ab Nonreactive Nonreactive [facility] Comment:Antibodies to HCV no t detected. Does NOT exclude the possibility of recent exposure to HCV. Blood 11/09/2021 9:57 AM CDT 11/09/2021 11:08 AM CDT Gayle Sandoval NP LAB MICROBIOLOGY - GENER AL ORDERABLES Edited Result - [facility] Department [place] [address] from Last 3 Months or Most Recently Relevant to Health Maintenance [facility] [id number] [facility] [id number] [facility] [id number] [facility] [id number] Care Teams Oil [place] Technician Relationship Specialty Start Date End Date Gen Pinto MD [address] [place], [place] [address] [address] PCP - General Family Medicine 10/17/19
--- OUTSIDE RECORDS SUMMARY | 2024-10-02 00:53 | XMS_ITS | Clinical Summary ---
Author Organization [facility] Address [address] [place] [address] Care Team Providers Care Handle Machine Operator Name Role Phone Gen Pinto MD Primary Care Provider [phone] Source Comments [facility],non-[facility] Affiliates and Associated Physician Practices is amultiple site organization consisting of ambulatory clinics and hospital sitesin [place], [place], [place] and [place]. This disclosure is being madepursuant to the Care Everywhere program and may not contain all information available regarding this patient. Last updated 17.[facility] Allergies Active Allergy Reactions Criticality Noted Date Comments Quercus Robur Rhinitis,Other 07/26/2018 [place] Pollen Medications * Be aware that medications may not be up to date on this document. Alwaysverify current medications with the patient. meloxicam (MOBIC) 15 MG tablet Take 1 tablet by mouth once daily 30 tablet 2 0 Active clindamycin (CLEOCIN) 1 % lotionIndication s:Hidradenitis suppurativa Apply to affected area on armpits and groin twice daily. 30 day supply. 60 mL 2 0 Active doxycycline hyclate (VIBRAMYCIN) 100 MG tabletIndication s:Acne Vulgaris Take 1 tablet by mouth 2 times daily Reasons: Common Acne 60 tablet 2 0 Active Active Problems Problem Noted Date Diagnosed Date Vaginal bleeding 02/01/2018 Supervision of normal first 12/07/2017 Overview (01/06/2018): PNL collection date and results: labs: B+/I/-/-; HIV neg Urine culture: neg PAP: normal w neg HPV GC/CT:-/- Dating US: 7wk5d Anomaly scan: plan at 20 wks Genetics: Sequential screen part one completed. Plan part 2 at 20 wks. GCT: 24-28 weeks Tdap: offer at 28 wks HIV: neg GBS: 35 wga H/Plt: 12.4.=/193 UCx: neg Breast/Formula: Breast Family Planning: Flu: given Immunizations Immunization Administration Dates Next Due Human Papilloma Virus Vaccine 02/28/2011 INFLUENZA VACCINE, QUADR. (F LUZONE; FLULAVAL; FLUARIX; AFLURIA QUADRIVALENT; 6MO+), 0.5 ML (IIV4) 01/06/2018 TDAP (7yrs+) 04/26/2018 Family History Medical History Relation Name Comments None Known Brother None Known Father None Known Maternal Aunt None Known Maternal Grandfather None Known Maternal Grandmother None Known Maternal Uncle None Known Mother None Known Other None Known Paternal Aunt None Known Paternal Grandfather None Known Paternal Grandmother None Known Paternal Uncle None Known Sister Asthma Neg Hx CVA Neg Hx Cancer - Breast Neg Hx Cancer - Other Neg Hx Cancer - Skin, Melanoma Neg Hx Cancer - Skin, Non Melanoma Neg Hx Eczema Neg Hx Hemophilia Neg Hx Psoriasis Neg Hx Relation Name Status Comments Brother Father Maternal Aunt Maternal Grandfather Maternal Grandmother Maternal Uncle Mother Other Paternal Aunt Paternal Grandfather Paternal Grandmother Paternal Uncle Sister Social History Tobacco Use Types Packs/Day Years [...] Sign Reading Time Taken Comments Blood Pressure 124/82 12/19/2019 9:07 AM CDT Pulse 73 10/05/2019 10:42 AM CDT Temperature 36.4 C (97.5 F) 10/05/2019 10:42 AM CDT Respiratory Rate 16 07/27/2018 11:45 AM CDT Oxygen Saturation 100% 07/27/2018 11:45 AM CDT Inhaled Oxygen Concentration - - Weight 80.4 kg (177 lb 3.2 oz) 12/19/2019 9:07 A M CDT Height 165.1 cm (5' 5) 12/19/2019 9:07 AM CDT Body Mass Index 29.49 12/19/2019 9:07 AM CDT Plan of Treatment Health Maintenance Due Date Last Done Comments HEPATITIS C SCREENING 03/06/2003 HEPATITIS B VACCINE (1 of 3 - 19+ 3-dose series) 2004 HPV VACCINE (2 - 3-dose series) 03/28/2011 02/28/2011 PAP with HPV 12/07/2022 12/07/2017 COVID-19 VACCINE (2023- season) 2023 06/19/2020, 05/29/2020 DEPRESSION SCREENING 02/29/2024 INFLUENZA VACCINE (#1) 2024 , 10/22/2019, 12/01/2018, Additional history exists DTAP/TDAP/TD VACCINES (2 - Td or Tdap) 04/26/2028 04/26/2018 ZOSTER VACCINE (1 of 2) 2035 HIV SCREENING Completed 12/07/2017 HIB VACCINE Aged Out No longer eligi ble based on patient's age to complete this topic MENINGOCOCCAL (Group B) VACCINE SHARED DECISION-MAKING Aged Out No longer eligible based on patient's age to complete this topic MENINGOCOCCAL GROUPS A/C/Y/W VACCINE Aged Out No longer eligible based on patient's age to complete this topic PNEUMOCOCCAL VACCINE Aged Out No long er eligible based on patient's age to complete this topic Procedures Procedure Name Priority Date/Time Associated Diagnosis Comments HPV DETECTION HIGH RISK LINNEA Routine 12/07/2017 10:10 AM CDT Encounter for supervision of normal first in first trimester HIV-1 HIV-2 ANTIGEN/ANTIBODY W RFLX Routine 12/07/2017 Encounter for supervision of normal first in first trimester from Last 3 Months or Most Recently Relevant to Health Maintenance Results * HPV DETECTION HIGH RISK LINNEA (12/07/2017 10:10 AM CDT) High Risk Human Papilloma Result Not Detected Not Detected 12/08/2017 4:32 PM CDT [facility] High Risk Human Papilloma Interp 12/08/2017 4:32 PM CDT [facility] Comment:High Risk Human Blu lloma Virus was Not Detected. Pathology/Cytolo gy MISCELLANEOUS SAMPLES / Unknown 12/07/2017 10:10 AM CDT 12/08/2017 11:06 AM CDT Narrative [facility] - 12/08/2017 4:32 PM CDT Nucleic acid isolated from the specimen was analyzed with a nucleic acid amplification test (FDA approved Gen-Probe HPV Assay) to detect high risk human papilloma virus (Types: 16, 18, 31, 33, 35, 39, 45, 51, 52, 56, 58, 59, 66, and 68). The reference range is Not Detected. Comment: These test results should not be used as the sole basis for clinical assessment and treatment of patients. These results should always be correlated with other available data (cytology, histology, and clinical information). Saundra Yi PUBLICATIONS DESIGNER-[facility] LAB - MICROBIOLOGY ORDERAB LES Final Result [facility] [address] [phone] * HIV-1 HIV-2 ANTIGEN/ANTIBODY W RFLX (12/07/2017) Pathologist [facility] HIV Screen 4th Generation w Reflex NON-REACT MALIK NON-REACT MALIK [facility] Comment: HIV-1 antigen and HIV-1/HIV-2 antibodies were not detected. There is no laboratory evidence of HIV infection. PLEASE NOTE: This information has been disclosed to you from records whose confidentiality may be protected by state law. If your state requires such protection, then the state law prohibits you from making any further disclosure of the information without the specific written consent of the person to whom it pertains, or as otherwise permitted by law. A general authorization for the release of medical or other information is NOT sufficient for this purpose. For additional information please refer to http://education.[place].ScaleMP/faq/NCZ262 (This link is being provided for informational/ educational purposes only.) The performance of this assay has not been clinically validated in patients less than 2 years old. REPORT COMMENT: FASTING:NO COLLECTION REQUIREMENTS NOT MET. PATIENT ADVISED TO RETURN. Test Performed at: [facility] [id number] [id number] AI DAVID DO,MPH Blood BLOOD SPECIMEN / Unknown 12/07/2017 12/07/2017 10:18 AM CDT Saundra Yi PUBLICATIONS DESIGNER-[facility] LAB - SEROLOGY ORDERABLES Final Result [facility] [id number] [place] [address] from Last 3 Months or Most Recently Relevant to Health Maintenance Insurance [facility] [facility] [place] Address: [facility] [id number] [place] [address] Advance Directives * Full Code (Latest Code Status on File) Date Activated Date Inactivated Comments 07/26/2018 11:41 PM 07/27/2018 4:33 PM Care Teams Handle Machine Operator Relationship Specialty Start Date End Date Gen Pinto MD PCP - General Family Medicine 07/26/18
--- OUTSIDE RECORDS SUMMARY | 2024-10-02 00:53 | XMS_ITS | Continuity of Care Document ---
Author Organization [facility] Address [address] [facility] [address] [place] [address] Phone Care Team Providers Care Cath Lab Name Role Phone Eugenie Ruth OT Unavailable Unavailable Procedures Procedure Date Therapeutic Activities Neuromuscular Re-Ed Therapeutic Exercise Manual Therapy Hot or Cold Pack Therapeutic Activities Neuromuscular Re-Ed Therapeutic Exercise Manual Therapy Hot or Cold Pack Therapeutic Activities Neuromuscular Re-Ed Therapeutic Exercise Manual Therapy Hot or Cold Pack Identified as not an unhealthy alcohol u ser Not identified as unhealthy alcohol via screening OT Evaluation Low Complexity Therapeutic Activities Neuromuscular Re-Ed Therapeutic Exercise Manual Therapy Hot or Cold Pack Advance Directives Directive Yes / No Effective Date File Name No Information Encounters Encounter Description Practice Location Reason(s) For Visit Diagnoses Date Provider Providers Copied on Encounter [facility], [address], [place], [place], [id number], [place] tel:[phone] [employer] No Information Faraz Traore. . [facility] [facility] [address], [place], [place], [id number], tel:[phone] Sheryl Milian No Information Ruth Eugenie. . Referring Provider: Go Richards, [address] [address], [place], [address]. tel:[phone] [facility] [address], [place], [place], [id number], tel:[phone] [place] [place] No Information Ruth Eugenie. . Referring Provider: Go Richards, [address] [facility] [address], [place], [address]. tel:[phone] [facility] [address], [place], [place], [id number], tel:[phone] [place] [place] No Information Ruth Eugenie. . Referring Provider: Go Richards, [address] [facility] [address], [place], [address]. tel:[phone] [facility] [address], [place], [place], [id number], tel:[phone] Sheryl [place] No Information Ruth Eugenie. . Referring Provider: Go Richards, [address] [address], [place], [address]. tel:[phone] Family History Family Member Type Diagnosis Age At Onset No Information Payers Payer name Insurance type Covered alliance party ID Liban back(s) [employer] CI [id number] Social History Type Description Quantity Date Captured Comments Sex Female Smoking Status No Information Chief Complaint And Reason For Visit No Information Reason For Referral Reason For Referral No Information History Of Present Illness Encounter Date Complaint History Of Prese nt Illness No Information Functional Status Date Functional Assessmen t No Information Instructions Date Instruction Additional Infor mation No Information Assessments Type Assessment Date No Information Patient Care Teams Name Effective Dates (start - stop) Status Members No Information
--- OUTSIDE RECORDS SUMMARY | 2024-10-02 00:53 | XMS_ITS | Clinical Summary ---
Author Organization [facility] Care Team Providers Care Corduroy Cutting Supervisor Name Role Phone Unavailable Primary Care Provider Unavailabl e Social History Tobacco Use Types Packs/Day Years Used Date Smoking Tobacco: Never Assessed Comments Unknown Sex and Gender Information Value Date Recorded Sex Assigned at Not on file Legal Sex Female 12:26 PM CDT Gender Identity Not on file Sexual Orientation Not on file Plan of Treatment Health Maintenance Due Date Last Done Comments Hepatitis C Virus (HCV) Screening 1985 Hepatitis B Immunization (1 of 3 - 19+ 3-dose series) 2004 Pap Smear 2006 Human Papillomavirus (HPV) Immunization (2 - 3-dose series) 03/28/2011 02/28/2011 Cervical Cancer Screening (CCS) 2015 HPV/Cotest 2015 SARS-COV-2 Immunization ( season) 2023 03/05/2021, 06/19/2020, 05/29/2020 Influenza Immunization (#1) 10/29/202409/29, 12/01/2018, 01/06/2018 Respiratory Syncytial Virus (RSV) Immunization (Adult) (1 - 1-dose 75+ series) 2060 DTaP/Tdap/Td Immunization Discontinued 04/26/2018 TdaP Immunization Completed 04/26/2018 Meningococcal Immunization (ACWY) Aged Out No longer eligible based on patient's age to complete this topic Pneumococcal Immunization Combined Aged Out No longer eligible based on patient's age to complete this topic Rotavirus Immunization Aged Out No lo nger eligible based on patient's age to complete this topic
--- OUTSIDE RECORDS SUMMARY | 2024-10-02 00:53 | XMS_ITS | Clinical Summary ---
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 I will obtain [...] on signs/symptoms of allergic conjunctivitis. Currently seeing descriptive catalog librarian and undergoing injections. Symptoms worsened during spring. [...] qam OU for allergy symptoms. Now seeing descriptive catalog librarian and undergoing injections. 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 Chronic cough Encounters Date Type Department Care Team Description 09/28/2024 3:30 PM CDT Clinical Support [facility] [address] [place] [address] [address] [place] [phone] Seasonal allergic rhinitis due to pollen; Non-seasonal allergic rhinitis due to pollen 09/13/2024 2:00 PM CDT Clinical Support [facility] [address] Medical Office Building [address] [place] [address] Seasonal allergic rhinitis due to pollen; Non-seasonal allergic rhinitis due to pollen 09/07/2024 3:40 PM CDT Clinical Support [facility] [address] [place] [address] Medical Office Building [address] [place] [address] Seasonal allergic rhinitis due to pollen; Non-seasonal allergic rhinitis due to pollen 08/10/2024 3:40 PM CDT Clinical Support [facility] [address] [place] [address] Medical Office Building [address] [place] [address] Seasonal allergic rhinitis due to pollen; Non-seasonal allergic rhinitis due to pollen 07/27/2024 Telephone [facility] Surgery [address] [place] [address] Office Building [address] [place] [address] Genesis Bronson, RMA orthotic coverage 07/27/2024 Results Follow-Up [facility] Surgery [address] [place] [address] Office [facility] [address] [place] [phone] Mai Bronsonily, RMA XR Foot Left 3 or More Views 07/26/2024 2:00 PM CDT - 07/26/2024 11:59 PM CDT [facility] - [address] [place] [address] [place] [address] [address] [place] [address] Left foot pain; Chronic pain of left ankle Discharge Disposition: Discharge to home or self care 07/26/2024 1:00 PM CDT Office Visit [facility] [address] [place] [address] Medical Office Building [address] [place] [address] Mike Gan, DPMoustapha Leg length discrepancy (Primary Dx); Left foot pain; Chronic pain of left ankle 07/13/2024 3:10 PM CDT Clinical Support [facility] [address] [place] [address] Medical Office Building [address] [place] [address] Seasonal allergic rhinitis due to pollen; Non-seasonal allergic rhinitis due to pollen 07/02/2024 9:45 AM CDT Office Visit [facility] Orthopaedic Surgery [address] [facility] 1st Floor [address] [place] [address] Go Richards MD Right elbow pain (Primary Dx); Right wrist pain 07/02/2024 9:33 AM CDT - 07/02/2024 11:59 PM CDT Hospital Encounter [facility] Radiology at [facility] [address] [place] [address] Right elbow pain Discharge Disposition: Discharge to home or self care from Last 3 Months Immunizations Immunization Administration Dates Next Due HPV, Unspecified 02/28/2011 Influenza, Quadrivalent, Leydi l Culture-based MDCK, Preservative Free, Antibiotic Free, Intramuscular 10/22/2019,12/01/2018 Influenza, Quadrivalent, Spl it, Preservative Free, Intramuscular 01/06/2018 Tdap 04/26/2018 Surgical History Surgery Date Site/Laterality Comments HAND SURGERY Medical History Medical History Date Comments Anemia Allergic rhinitis Urinary tract infection Family History Medical History Relation Name Comments Clotting disorder Father Hypertension Mother Heart disease Paternal Grandfather Relation Name Status Comments Father Alive Mother Alive Paternal Grandfather Social History Tobacco Use Types Packs/Day Years [...] CDT Gender Identity Female 04/21/2020 12:29 AM 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 Sexual Orientation Straight 04/21/2020 12 :29 AM 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 Occupation Industry Job Start Date Job End Date unemployed Not on file Not on file Not on file Obstetrics History Last Filed Vital Signs Vital Sign Reading [...] 06/04/2024 10:55 AM CDT Plan of Treatment Health Maintenance Due Date Last Done Comments Cervical Cancer Screening 1985 Depression Screening 1985 Varicella Vaccines (1 of 2 - 13+ 2-dose series) 1998 Regular Well Visit/Exam 18-64 2003 HPV Vaccines (2 - 3-dose series) 03/28/2011 02/28/2011 Influenza Vaccine (#1) 2024 1, 10/22/2019, 12/01/2018, Additional history exists DTaP/Tdap/Td Vaccine (2 - Td or Tdap) 04/26/2028 04/26/2018 Hepatitis B Screening Completed 11/09/2021 Hepatitis C Screening Completed 11/09/2021 Pneumococcal vaccine <65 Aged Out No longer eligible based on [...] signed by: Mike Quiñonez D.O. Mike Gan DP IMG XR PROCEDURES Final Res ult * X-ray [...] remainder of the foot. Procedure Note Mike Quiñonez DO - 07/26/2024 EXAMINATION: XR FOOT LEFT 3 [...] by: Mike Quiñonez D.O. Mike Gan DPM IMG XR PROCEDURES Final Res ult * XR [...] it. Electronically signed by: Eugenia Renee MD us Go Richards MD IMG XR PROCEDURES Final Res ult * Hepatitis C antibody (11/09/2021 9:57 AM CDT) Hep C Ab Nonreactive Nonreactive [facility] Comment:Antibodies to HCV no t detected. Does NOT exclude the possibility of recent exposure to HCV. Blood 11/09/2021 9:57 AM CDT 11/09/2021 11:08 AM CDT us Gayle Sandoval NP LAB MICROBIOLOGY - GENER AL ORDERABLES Edited Result - Final [facility] [address] [facility] Department [place] [address] from Last 3 Months or Most Recently Relevant to Health Maintenance Insurance [facility] [id number] [facility] [id number] [facility] [id number] [facility] [id number] Care Teams Splitter Tender Relationship Specialty Start Date End Date Gen Pinto MD [address] [place] [address] PCP - General Family Medicine 10/17/19
--- OUTSIDE RECORDS SUMMARY | 2024-10-02 00:53 | XMS_ITS | Encounter Summary ---
Author Organization [facility] Address [address] [facility] [place] [address] Care Team Providers Care Hydraulic Tester Name Role Phone Gen Pinto MD Primary Care Provider [phone] Encounter Details Date Type Department Care Team (Late st Contact Info) Description 01/12/2018 Telephone [facility] OB [address] [place] [address] Harmony Dotson MD [address] [facility] [address] [place] [address] Social History Tobacco Use Types Packs/Day Years [...] on file documented as of this encounter Plan of Treatment Not on file documented as of this encounter Visit Diagnoses Not on filedocumented in this encounter Care Teams Hydraulic Tester Relationship Specialty Start Date End Date Gen Pinto MD PCP - General Family Medicine 07/26/18 documented as of this encounter
[2024-10-02 09:55] VITALS: BP 109/70; PULSE 62; RESP 18; TEMP 36.6; O2SAT 100; BMI 29.4
[2024-10-02] MEDS: LACTATED RINGERS 1,000 ML 150 ML IV CONT (10:11)
--- NOTE | 2024-10-02 10:15 | PM.HPGS ---
History of Present Illness History of Present Illness Consent: Risks, benefits, and alternatives have been discussed and questions answered. Patient agrees to proceed with procedure. Chief complaint: Gastro-esophageal reflux disease without esophagit Narrative: Andrés Zarate is a 39 year old female here for first EGD, epigastric pain on famotidine Review of Systems Review of Systems: All systems reviewed & are unremarkable except as noted in HPI and below PMFSH Past Medical History Medical History (Updated 10/02/24 @ 10:16 by Jeanmarie Jane MD) Epigastric pain Social History Social History Smoking status: Never smoker Substance use type: does not use Living arrangements: with family Spiritual care concerns: No Meds Home Medications and Allergies Home Medications ?Medication ?Instructions ?Recorded ?Confirmed ?Type famotidine 40 mg tablet 40 mg PO DAILY 09/28/24 10/02/24 History Allergies Allergy/AdvReac Type Severity Reaction Status Date / Time No Known Drug Allergies Allergy Unknown Unknown Verified 10/02/24 09:53 O[place] POLLEN Allergy Mild SNEEZING,ITCHY Uncoded 10/02/24 09:53 EYES Vital Signs Vital Signs - 24 hr 10/02/24 09:55 Temperature 97.8 F Pulse Rate 62 Respiratory Rate 18 Blood Pressure 109/70 Pulse Oximetry 100 Oxygen Delivery Room Air Exam Const: General: comfortable and no acute distress HENMT: Face/Nose/Sinus: Normal nares present Eyes: General: appearance normal, both eyes and all related structures Neck: Neck: no JVD Resp: Auscultation: clear to auscultation bilaterally Cardio: Rate: regular rate Rhythm: regular rhythm GI: Inspection: non-distended GI Palp: Yes Soft to palpation Skin: General skin exam: normal color Neuro: Speech: normal speech Extrem: General: normal to inspection Psych: Mental Status: mental status grossly normal Assessment and Plan Assessment and plan (1) Epigastric pain: Code(s): R10.13 - Epigastric pain Status: Acute Assessment and Plan: egd with bx
--- NOTE | 2024-10-02 10:35 | P.PNAN_ITS ---
Anes - Initial Pre Proc Eval Procedure: Operation Date: 10/02/24 11:00 Proposed Procedures p Esophagogastroduodenoscopy - Jeanmarie Jane MD Date/Time: 10/02/24 10:35 Surgeon: Jeanmarie Jane MD Pre Op Diagnosis: Gastro-esophageal reflux disease without esophagit Patient Data Age: 39 Gender: F Height: 1.68 m Weight: 82.7 kg Last Vital Signs Temp 36.6 C 10/02/24 09:55 Pulse 62 10/02/24 09:55 Resp 18 10/02/24 09:55 BP 109/70 10/02/24 09:55 Pulse Ox 100 10/02/24 09:55 O2 Del Method Room Air 10/02/24 09:55 Allergies Allergy/AdvReac Type Severity Reaction Status Date / Time No Known Drug Allergies Allergy Unknown Unknown Verified 10/02/24 09:53 O[place] POLLEN Allergy Mild SNEEZING,ITCHY Uncoded 10/02/24 09:53 EYES Home Medications ?Medication ?Instructions ?Recorded ?Confirmed ?Type famotidine 40 mg tablet 40 mg PO DAILY 09/28/24 10/02/24 History Laboratory Tests 10/02/24 10:02 Beta HCG, Quant Pending Patient hx anesthesia problems: none Family hx anesthesia problems: none Results Review: All pre-operative results and documents have been reviewed as part of the pre- operative evaluation. [facility] Past Medical History Medical History Epigastric pain Social History Social History Smoking status: Never smoker Substance use type: does not use Living arrangements: with family Spiritual care concerns: No Anes - Eval Final PreProcedure Day of Procedure 10/02/24 10:35 Patient weight: overweight Heart: regular rate and rhythm Lungs: clear to auscultation Airway: Mallampati scale class II Neurological: alert and oriented Last oral intake: >/= 8 hours ASA classification: III Emergent: no Anesthetic plan: proceed Anesthesia type and monitoring: general GIVS and standard monitoring Results Review: All pre-operative results and documents have been reviewed as part of the pre- operative evaluation. Informed Consent: The patient's anesthetic plan and its attendant risks and benefits were discussed with the patient/family/POA. Questions were solicited and answers provided to the satisfaction of the patient/family/POA.
[2024-10-02 10:49] LABS: Beta HCG Quantitative < 2.39 mIU/ML
[2024-10-02 10:52] LABS: BEDSIDEPREGUCG Negative (Negative)
--- NOTE | 2024-10-02 11:15 | S_PTH ---
PATIENT: Andrés Zarate LOC: [facility] Syed#:[id number] AGE/SX: 39/F ROOM: RE10/02/[address]: Jeanmarie Jane MD : 1985 BED: DIS: 10/02/2024 SPEC #: [id number] RECD: 10/02/24 13:22 STATUS: RUI REYvette #: [id number] RAJESH: 10/02/24 11:[address]: Jeanmarie Jane DEPT: [facility] Surgical RECD BY: Maricruz Green ENTERED: 10/02/24 13:23 SP TYPE: Surgical OTHR DR: Gen Pinto MD Tissues: A - Small Bowel Bx B - Gastric Biopsy C - Esophageal Biopsy Procedures: Hematoxylin and Eosin Stain Gross and Microscopic Level 4
[2024-10-02 11:19] VITALS: BP 118/79; PULSE 68; RESP 17; O2SAT 100
[2024-10-02 11:29] VITALS: BP 118/77; PULSE 61; RESP 16; O2SAT 100
[2024-10-02 11:39] VITALS: BP 105/75; PULSE 55; RESP 17; O2SAT 100
== END 2024-10-02 11:49 | disposition home or self-care (01) ==
PROVIDERS: Anesthesiology; PCP Emergency Medicine; Referring Provider Emergency Medicine; Visit Provider Internal Medicine Gastroenterology
PROC: 0DJ08ZZ Inspection of Upper Intestinal Tract, Via Natural or Artificial Opening Endoscopic (ICD-10-PCS; CPT 43239; principal; 2024-10-02 11:00)
DX: K29.50 Unspecified chronic gastritis without bleeding (principal)
CPT/HCPCS: 43239; 36415; 84702; 88305; J2003; J2704; J7120